=== PATIENT | female | born 1995 | race Hispanic/Latino ===

== ENCOUNTER 2023-06-19 16:31 | Emergency (ER) | payer OTHER ==
[2023-06-19 16:51] VITALS: O2SAT 99
[2023-06-19 17:41] LABS: BILIRUBIN,URINE NEGATIVE (NEGATIVE); CLARITY,URINE SL CLOUDY (CLEAR); COLOR,URINE YELLOW (YELLOW); GLUCOSE, URINE NEGATIVE (NEGATIVE); KETONES,URINE 2+ (NEGATIVE); LEUKOCYTE ESTERASE ,URINE NEGATIVE (NEGATIVE); NITRITE,URINE NEGATIVE (NEGATIVE); PH,URINE 6 (5 - 7); PROTEIN,URINE DIPSTICK NEGATIVE (NEGATIVE); URINE UROBILINOGEN 0.2 mg/dL (0.2 - 1)
[2023-06-19 17:51] LABS: BACTERIA,URINE MODERATE /HPF; EPITHELIAL CELLS,URINE MANY /LPF; RBC,URINE 0-5 /HPF (0-5); TRANSITIONAL EPI CELLS,URINE MODERATE
[2023-06-19] MEDS ORDERED: MACROBID 100 M100 MG PO (19:19)
== END 2023-06-19 20:15 | disposition home or self-care (01) ==
LOC: ER 16:42
DX: O26.891 Other specified pregnancy related conditions, first trimester (principal); R82.71 Bacteriuria; H53.8 Other visual disturbances
CPT/HCPCS: 36415; 81001; 82948; 87086; 99283